=== PATIENT | female | born 1985 | race Caucasian/White ===

== ENCOUNTER 2017-07-14 04:13 | Emergency (ER) | payer MEDICAID ==
[~2017-07-14] VITALS: Ht 160 cm; Wt 79.0 kg
[2017-07-14] MEDS ORDERED: KETOROLAC 60MG/2ML VIAL IM ONE (06:30)
[2017-07-14] MEDS ORDERED: TETANUS, DIPHTHERIA, PERTUSSIS VAC/PF 0.5ML (>7YR OLD) IM ONE (09:15)
[2017-07-14 10:09] VITALS: BP 112/67
== END 2017-07-14 10:33 | disposition home or self-care (01) ==
LOC: ER 04:18
DX: S02.2XXA Fracture of nasal bones, initial encounter for closed fracture (principal); S40.011A Contusion of right shoulder, initial encounter; S90.812A Abrasion, left foot, initial encounter; S00.03XA Contusion of scalp, initial encounter; S00.81XA Abrasion of other part of head, initial encounter; S61.302A Unspecified open wound of right middle finger with damage to nail, initial encounter; M47.892 Other spondylosis, cervical region; Y04.0XXA Assault by unarmed brawl or fight, initial encounter; Y93.89 Activity, other specified; Y92.018 Other place in single-family (private) house as the place of occurrence of the external cause
CPT/HCPCS: 70450; 70486; 72125; 72141; 73030; 73140; 81025; 90471; 96372; 99284; J1885; 90715